=== PATIENT | female | born 1985 | race Two or more races ===

== ENCOUNTER 2017-04-28 12:00 | Emergency (ER) | payer OTHER ==
[2017-04-28 12:07] VITALS: RESP 16
[2017-04-28 13:31] LABS: COLOR AMBER; LEUKOCYTE ESTERASE,URINE NEGATIVE (NEGATIVE); NITRITE,URINE NEGATIVE (NEGATIVE)
--- NOTE | 2017-04-28 13:44 | EDPHY ---
H & P Smoking Status: Never smoked Time Seen by Provider: 04/28/17 13:30 HPI/ROS: CHIEF COMPLAINT: Right lower quadrant pain HISTORY OF PRESENT ILLNESS: This is a 31-year-old female presenting to the emergency department complaining right lower quadrant pain onset yesterday around 1600. Patient states it was initially sharp at 10/10, pain has decreased but is still constant radiating to right flank with nausea. No fever vomiting or diarrhea. Patient states she does have a history of kidney stones on her left side but today this pain is different. REVIEW OF SYSTEMS: Constitutional: No fever, no chills. Eyes: No discharge. ENT: No sore throat. Cardiovascular: No chest pain, no palpitations. Respiratory: No cough, no shortness of breath. Gastrointestinal: abdominal pain, no vomiting. Genitourinary: Urinary frequency, no dysuria Musculoskeletal: No back pain. Skin: No rashes. Neurological: No headache. (Kristi Barnhart) Physical Exam: General Appearance: Alert, no distress. Eyes: Pupils equal and round no pallor or injection. ENT, Mouth: Mucous membranes moist. Respiratory: There are no retractions, lungs are clear to auscultation. Cardiovascular: Regular rate and rhythm. Gastrointestinal: Abdomen is soft, right lower quadrant tenderness on palpation no rebound tenderness. no masses, bowel sounds normal. Neurological: No focal deficits Skin: Warm and dry, no rashes. Musculoskeletal: Neck is supple nontender. No CVA tenderness on palpation Extremities: symmetrical, full range of motion. Psychiatric: Patient is oriented X 3, there is no agitation. (Kristi Barnhart) Constitutional: Initial Vital Signs Temperature (C) 36.5 C 04/28/17 12:01 Heart Rate 72 04/28/17 12:01 Respiratory Rate 16 04/28/17 12:01 Blood Pressure 115/72 04/28/17 12:01 O2 Sat (%) 99 04/28/17 12:01 O2 Delivery Mode Room Air Allergies/Adverse Reactions: No Known Allergies Allergy (Verified 08/06/16 14:54) Home Medications: Medication Instructions Recorded Albuterol 12/16/15 Effexor 12/16/15 Albuterol [Ventolin Hfa Inhaler] 2 puffs IH QID PRN #1 mdi 08/06/16 Hydrocodone/APAP 5/325 [[place] 1 - 2 each PO Q6 PRN #20 tab 08/06/16 5/325] Medical Decision Making ED Course/Re-evaluation: Discussed ED plan of care: CBC BC, BMP, UA, hCG, pelvic and abdominal ultrasound to rule out appendicitis and ovarian cyst 1525: Spoke with Dr. Wilson pelvic ultrasound negative for any ovarian cyst, but recommends the CT with IV contrast unable to visualize the appendix due to patient's weight 1640: Spoke with Dr. Parikh CT negative for acute appendicitis, many renal calculi seen bilaterally non-obstructing 1645; discussed all results with patient, recommend following up with Nephrology and her primary care doctor. Patient reports 0/10 pain, no nausea vomiting. Discharge home---> stable, discussed all discharge instructions ( Kristi Barnhart) I did not see this patient while she was in the emergency department. However her care was discussed with the nurse practitioner while the patient was in the department. I agree with treatment plan and management (Dominguez Franz) Differential Diagnosis: Other differential diagnosis considered but not limited to appendicitis, ovarian cyst and ovarian torsion (Kristi Barnhart) - Data Points Laboratory Results: Laboratory Results 04/28/17 15:00 04/28/17 15:00 Medications Given: Discontinued Medications Morphine Sulfate (Morphine) 1 mg IVP EDNOW ONE Stop: 04/28/17 15:47 Last Admin: 04/28/17 16:10 Dose: 1 mg Ondansetron HCl (Zofran) 4 mg IVP EDNOW ONE Stop: 04/28/17 15:48 Last Admin: 04/28/17 16:10 Dose: 4 mg Oxycodone/Acetaminophen (Percocet 5/325mg Prepack#4) 1 btl TAKEHOME EDNOW ONE Stop: 04/28/17 16:50 Last Admin: 04/28/17 16:58 Dose: 1 btl Departure - Departure Disposition: Home, Routine, Self-Care Clinical Impression: Renal calculi Condition: Good Instructions: Kidney Stones (ED), Renal Colic (ED) Additional Instructions: Discussed discharge instructions 1. you can take ibuprofen and Tylenol as needed 2. Follow up with your primary care provider, follow up with Nephrology 3. If any symptoms worsen, such as: Fever, nausea vomiting high fever unable to tolerate any p.o. intake return to the ER Referrals: [facility] [Other] - As per Instructions Francisco Whiting MD [Medical Doctor] - As per Instructions
[2017-04-28 15:14] LABS: % IMMATURE GRANULYOCYTES 0.3 % (0.0-1.1); ABSOLUTE IMMATURE GRANULOCYTES 0.02 10^3/uL (0.00-0.10); ADD DIFF? NO; ADD MORPH? NO; ADD SCAN? NO; ATYPICAL LYMPHOCYTE FLAG 20 (0-99); FRAGMENT RBC FLAG 0 (0-99); HEMATOCRIT 40.1 % (38.0-47.0); HEMOGLOBIN 13.3 g/dL (12.6-16.3); LEFT SHIFT FLG 0 (0-99); LIPEMIA HEMOLYSIS FLAG 80 (0-99); MEAN CELL HEMOGLOBIN 29.2 pg (27.9-34.1); MEAN CELL HEMOGLOBIN CONCENTR. 33.2 g/dL (32.4-36.7); MEAN CELL VOLUME 88.1 fL (81.5-99.8); MEAN PLATELET VOLUME 10.1 fL (8.7-11.7); PLATELET CLUMPS FLAG 0 (0-99); PLATELET COUNT 302 10^3/uL (150-400); RED BLOOD CELL COUNT 4.55 10^6/uL (4.18-5.33); RED CELL DISTRIBUTION WIDTH 14.7 % (11.5-15.2)
[2017-04-28 15:41] LABS: ANION GAP 7 mEq/L (8-16); CALCIUM 9.8 mg/dL (8.5-10.4); CARBON DIOXIDE 22 mEq/l (22-31); CHLORIDE 107 mEq/L (97-110); CREATININE 0.7 mg/dL (0.6-1.0); GLOMERULAR FILTRATION RATE > 60; GLUCOSE 84 mg/dL (70-100); POTASSIUM 4.3 mEq/L (3.5-5.2); SODIUM 136 mEq/L (134-144)
[2017-04-28] MEDS ORDERED: ONDANSETRON 4 MG/2 ML VIAL IVP ONE (15:47)
[2017-04-28] MEDS ORDERED: IOPAMIDOL (ISOVUE-300) 100 ML BTL ONE (15:49)
[2017-04-28 16:23] VITALS: BP 110/69
[2017-04-28 16:44] VITALS: PULSE 64; TEMP 98.6; O2SAT 98
[2017-04-28] MEDS ORDERED: OXYCODONE/APAP 5/325MG PREPACK#4 BTL TAKEHOME ONE (16:49)
== END 2017-04-28 16:59 | disposition home or self-care (01) ==
DX: N20.0 Calculus of kidney (principal)
CPT/HCPCS: 96374; J2405; Q9967

== ENCOUNTER 2017-10-22 18:43 | Observation (INO) | payer OTHER ==
--- NOTE | 2017-10-22 19:55 | EDPHY ---
H & P Stated Complaint: Bloody discharge and increased abdo cramping, 17 weeks HPI/ROS: CHIEF COMPLAINT: Abdominal cramping and spotting, 17 weeks HISTORY OF PRESENT ILLNESS: The patient is a 32 y/o female who is 17 weeks by dates complaining of spotting and abdominal cramping. Her last ultrasound was 5 weeks ago and she saw her [facility] [facility] ANALYST last month, at which time heart tones were dopplerable. For several days she had mild cramping and spotting. However, yesterday she developed a sharp intermittent abdominal pain. She also noticed an increase in spotting today. It is uncomfortable to urinate, but there is no pain while urinating. She has not taken anything for pain. Denies history of therapeutic or miscarriage. REVIEW OF SYSTEMS: A ten point review of systems was performed and is negative with the exception of the items mentioned in the HPI. Past medical history: Asthma Kidney stones Past surgical history: Cholecystectomy Family history: Noncontributory Social history: [place] in [place] General Appearance: Alert. Vital signs reviewed. Eyes: Pupils equal and round, no conjunctival injection, no discharge. Anicteric. ENT, Mouth: Mucous membranes are moist, no oropharyngeal erythema or edema. Neck: No lymphadenopathy, supple. Respiratory: Lungs are clear to auscultation; no wheezes, rales, or rhonchi. Cardiovascular: Regular rate and rhythm; no murmur, rub, or gallop. Gastrointestinal: Mild left-sided abdominal tenderness. Abdomen is soft, no masses or organomegaly, bowel sounds normal. Skin: Warm and dry, no rashes on exposed skin, normal color. Back: Nontender to palpation over the thoracolumbar spine. No CVAT. Extremities: No lower extremity edema, no calf tenderness or swelling. Neurological: Alert and oriented. Moving all four extremities easily and equally. Psychiatric: Normal affect. - Personal History LMP (Females 10-55): Current Tetanus Diphtheria and Acellular Pertussis (TDAP): Yes - Medical/Surgical History Hx Asthma: Yes Hx Chronic Respiratory Disease: No Hx Diabetes: No Hx Cardiac Disease: No Hx Renal Disease: No Hx Cirrhosis: No Hx Alcoholism: No Hx HIV/AIDS: No Hx Splenectomy or Spleen Trauma: No Other PMH: PMH: asthma, kidney stones. PSH:choely - Social History Smoking Status: Never smoked Constitutional: Initial Vital Signs Temperature (C) 36.9 C 10/22/17 18:44 Heart Rate 89 10/22/17 18:44 Respiratory Rate 16 10/22/17 18:44 Blood Pressure 120/67 10/22/17 18:44 O2 Sat (%) 97 10/22/17 18:44 O2 Delivery Mode Room Air Allergies/Adverse Reactions: No Known Allergies Allergy (Verified 08/06/16 14:54) Home Medications: Medication Instructions Recorded Albuterol 12/16/15 Effexor 12/16/15 Albuterol [Ventolin Hfa Inhaler] 2 puffs IH QID PRN #1 mdi 08/06/16 Hydrocodone/APAP 5/325 [[place] 1 - 2 each PO Q6 PRN #20 tab 08/06/16 5/325] Ibuprofen [Motrin (*)] 600 mg PO Q6HRS PRN #30 tab 10/23/17 Medical Decision Making - Diagnostics Imaging: Discussed imaging studies w/ manager call center Radiologist ED Course/Re-evaluation: The patient is a 17 week , , 32 y/o female presenting with spotting and abdominal cramps for several days. On exam she has mild left-sided abdominal tenderness. Ob ultrasound reported to me by Dr. Hannah. He reports demise with placental abruption, 12 weeks 4 days by measurements on tonight's ultrasound. 2227: Reassessed patient and discussed ultrasound results. Rh positive. Dr. Mcclure will see her in the ED. Pelvic exam deferred to Dr. Mcclure. After discussion with Dr. Mcclure the patient would like to remain in the hospital overnight and undergo D&C in the morning. She is being admitted to the labor and delivery floor. She is stable while in the emergency department. Differential Diagnosis: I considered a ddx that includes but is not limited to demise/mass , placenta previa, threatened , normal pain of , UTI/ pyelo. - Data Points Microbiology Results: MICROBIOLOGY 10/22/17 20:15 Urine,Clean Catch Urine Culture - Preliminary Medications Given: Discontinued Medications Acetaminophen (Tylenol) 650 mg PO Q6 PRN PRN Reason: Pain, Mild/Fever, Can Take PO Stop: 04/21/18 00:44 Last Admin: 10/23/17 01:14 Dose: 650 mg Doxycycline Hyclate 100 mg/ (Sodium Chloride) 260 mls @ 260 mls/hr IV Q12HRS PERI PRN Reason: Protocol Stop: 11/22/17 06:59 Last Admin: 10/23/17 07:25 Dose: 260 mls Departure - Departure Disposition: [facility] In[facility] Acute Clinical Impression: demise, Missed with demise before 20 completed weeks of gestation Condition: Good Report Scribed for: Dinora Collier Report Scribed by: Tressa Pires Date of Report: 10/22/17 Time of Report: 21:09 Physician Review and Approval Statement: 10/22/17 19:55 Portions of this note were transcribed by the medical research tech. I, Dr. Dinora Collier, personally performed the history, physical exam, and medical decision- making; and confirmed the accuracy of the information in the transcribed note.
[2017-10-22 20:00] LABS: COLOR YELLOW; LEUKOCYTE ESTERASE,URINE NEGATIVE (NEGATIVE); NITRITE,URINE NEGATIVE (NEGATIVE)
[2017-10-22 20:13] LABS: BACTERIA TRACE /hpf (NONE SEEN); MUCUS TRACE /lpf (NONE-1+)
[2017-10-22 23:59] VITALS: PULSE 79
[2017-10-23 00:20] VITALS: BP 109/70; RESP 18; TEMP 98.2; O2SAT 98
[2017-10-23] MEDS ORDERED: ACETAMINOPHEN 325 MG TAB PO PRN (00:45)
--- NOTE | 2017-10-23 02:07 | GHP ---
[f rep st] PREOP HISTORY AND PHYSICAL DATE OF ADMISSION: 10/22/2017 REASON FOR CONSULTATION: Twelve week demise with abdominal pain. INDICATIONS: Patient is a 32-year-old, 5, para 4-0-0-4, who has been receiving care at [facility] in [place]. Patient was supposed to be around approximately 17 weeks gestatio n. She was last seen 4 weeks ago at [facility] and had normal heart tones Dopplered at that time. For the last several days, patient has been having some increased cramping and began having spotting leeroy ier today. She called her doctor's office who told her to go to the nearest hospital, so she came to [facility]. An ultrasound was performed, which showed a 12 week 4 day fetus with no cardiac activity and a suspected placental abruption, diagnosis of missed AB, demise was made. Patient is tearful but not surprised. A long discussion was had with the patient about management options, because patient is having minimal bleeding and minimal pain, that patient be allowed to go h ome tonight to process and then follow up with her provider tomorrow and schedule a d and C versus ex pected management and possibly passing the baby and placental tissue at home and following up versus being observed overnight and doing a D and C in the morning. Patient is electing to proceed with a D and C in the morning after inpatient observation to avoid having to go home and discuss this with he r children before had the situation resolved. Patient is comfortable, will be managed overnight, and will do the D and C in the morning. PAST MEDICAL HISTORY: Significant for asthma, sleep apnea, and seasonal allergies. MEDICATIONS: Advair, Xopenex. PAST SURGICAL HISTORY: Kidney stone removal several times, cholecystectomy. ALLERGIES: No known drug allergies. SOCIAL HISTORY: Patient denies tobacco, alcohol, or drug use. FAMILY MEDICAL HISTORY: Noncontributory. HVAC LEAD HISTORY: Patient has a history of irregular cycles. She is a 5, para 4-0-0-4. Her c hildren are 16, 12, 10, and 5. She has had all vaginal deliveries, most recent is a missed . Patient has a remote history of abnormal Pap smears but just was followed with repeat Pap smears. Denies any history of any sexually transmitted diseases. PHYSICAL EXAMINATION: VITAL SIGNS: Stable. Her blood pressure is 120/67. Her heart rate is 89. H er temperature is 36.8. GENERAL APPEARANCE: Alert, oriented x3, and tearful. PSYCH: She has appro priate affect. MUSCULOSKELETAL: Grossly intact. NEUROMUSCULAR: Grossly intact. HEART: Rate is r egular. LUNGS: Clear to auscultation bilaterally. ABDOMEN: Obese, soft, nondistended, nontender. EXTREMITIES: Reveal no calf tenderness or edema. PELVIC: Deferred for the moment. Pelvic ultrasound showed a 12 week 4 day demise with no cardiac activity with a posterior place nta abruption. Patient's blood type is Rh positive. REVIEW OF SYSTEMS: A 10-point review of systems is negative with the exception of the above and ment ioned pertinent positive. ASSESSMENT AND PLAN: A 32-year-old, 5, para 4-0-0-4, who is 17 weeks by dates with a 12 week 4 day demise. Because patient is hemodynamically and physically stable and it is not an emerg ency, will wait to do the suction dilation and curettage in the morning under ultrasound to allow for an program services assistant to help with ultrasound guidance due to the advanced gestational age. Patient will sig n consent in the morning. She will be managed overnight. /[id number]/MODL
[2017-10-23] MEDS ORDERED: DOXYCYCLINE INJ 100 MG in NS 250 ML IV SCH (07:00)
[2017-10-23] MEDS ORDERED: MIDAZOLAM 2 MG/2 ML VIAL ONE (08:01)
[2017-10-23] MEDS ORDERED: PROPOFOL/EMULSION 500 MG/50 ML BOTTLE IV ONE (08:06)
[2017-10-23] MEDS ORDERED: fentaNYL 100 MCG/2 ML INJ ONE ×2 (08:07→09:08)
[2017-10-23] MEDS ORDERED: METHYLERGONOVINE MAL 0.2 MG/ML INJ ONE (08:31)
--- NOTE | 2017-10-23 08:59 | POSTOPPROG ---
Post Op Note Date of Operation: 10/23/17 Surgeon: Marti Lujan Rivet Heater: Dr. Lily Mcclure Anesthesiologist: Dr. John Flores Anesthesia: GET(General Endotracheal) Pre-op Diagnosis: MAB @ 17 weeks by dates, 03/02 by size Post-op Diagnosis: same Procedure: ultrasound guided suction D and C Findings: 12 week demise Inf/Abcess present in the surg proc area at time of surgery?: No Depth: Organ Space EBL: 50-100 Total fluids administered: 500 Complications: none Specimen(s): products of conception
[2017-10-23] MEDS ORDERED: IBUPROFEN 600 MG TAB PO PRN (09:00)
[2017-10-23] MEDS ORDERED: DEXAMETHASONE 4 MG/ML VIAL ONE ×2 (09:07→09:08)
[2017-10-23] MEDS ORDERED: LIDOCAINE 2% 5 ML SDV ONE (09:07)
[2017-10-23] MEDS ORDERED: ONDANSETRON 4 MG/2 ML VIAL ONE (09:07)
[2017-10-23] MEDS ORDERED: KETOROLAC 30 MG/1 ML SDV ONE (09:08)
[2017-10-23] MEDS ORDERED: METOCLOPRAMIDE 10 MG/2 ML VIAL ONE (09:17)
--- NOTE | 2017-10-23 10:27 | PDANEPAE ---
ANE History of Present Illness Missed Ab. ANE Past Medical History - Cardiovascular History Hx Hypertension: No Hx Arrhythmias: No Hx Chest Pain: No Hx Coronary Artery / Peripheral Vascular Disease: No Hx CHF / Valvular Disease: No Hx Palpitations: No - Pulmonary History Hx COPD: No Hx Asthma/Reactive Airway Disease: Yes Hx Recent Upper Respiratory Infection: No Hx Oxygen in Use at Home: No Hx Sleep Apnea: Yes - Endocrine History Hx Diabetes: No Hypothyroid: No Hyperthyroid: No Obesity: moderate - Chronic Pain History Chronic Pain: No - Surgical History Prior Surgeries: Prior cholecystectomy. ANE Review of Systems Review of systems is: negative Review of Systems: - Exercise capacity Exercise capacity: >=4 METS ANE Patient History - Allergies Allergies/Adverse Reactions: No Known Allergies Allergy (Verified 08/06/16 14:54) - Home Medications Home Medications: Albuterol 12/16/15 [Last Taken Unknown] Effexor 12/16/15 [Last Taken Unknown] - Anes Hx Anes Hx: no prior problems - Smoking Hx Smoking Status: Never smoked Marijuana use: No - Alcohol Use Alcohol Use: Rarely - Family Anes Hx Family Anes Hx: neg - N/A ANE Labs/Vital Signs - Vital Signs Blood Pressure: 109/70 Heart Rate: 79 Respiratory Rate: 18 O2 Sat (%): 98 Height: 154.94 cm Weight: 92.986 kg ANE Physical Exam - Airway Neck exam: FROM Mallampati Score: Class 3 Mouth exam: normal dental/mouth exam - Pulmonary Pulmonary: no respiratory distress, clear to auscultation - Cardiovascular Cardiovascular: regular rate and rhythym - ASA Status ASA Status: II ANE Anesthesia Plan Anesthesia Plan: GA with mask
--- NOTE | 2017-10-23 10:40 | POSTANESTH ---
Post Anesthetic Evaluation Cardiovascular Status: Normal, Stable, Similar to Pre-Op Cond Respiratory Status: Normal, Stable, Similar to Pre-op Cond. Level of Consciousness/Mental Status: Can Participate in Eval, Mildly Sleepy, Arousable Pain Control: Inadeq, Add Tx Required Nausea/Vomiting Control: Inadeq, Add Tx Reqired Complications Possibly Related to Anesthesia: None Noted (Comfortable after fentanyl for pain and reglan for nausea. Patient and instructed that patient should be careful to continue to use CPAP machine whenever sleeping.)
[2017-10-23] MEDS ORDERED: ALBUTEROL 3 ML DEYVIAL IH PRN (10:41)
[2017-10-23] MEDS ORDERED: fentaNYL 100 MCG/2 ML INJ IVP PRN (10:41)
[2017-10-23] MEDS ORDERED: METOCLOPRAMIDE 10 MG/2 ML VIAL IVP PRN (10:41)
[2017-10-23] MEDS ORDERED: NALOXONE HCL 0.4 MG/ML INJ IVP PRN (10:41)
--- NOTE | 2017-10-23 16:19 | GOP ---
[f rep st] OPERATIVE REPORT DATE OF OPERATION: 10/23/2017 SURGEON: Marti Lujan MD SLAB CONDITIONER SUPERVISOR: Lily Mcclure DO. ANESTHESIA: General. ANESTHESIOLOGIST: John Flores MD PREOPERATIVE DIAGNOSIS: Missed at 17 weeks by dates 12-03/02 weeks by size. POSTOPERATIVE DIAGNOSIS: PROCEDURE PERFORMED: Ultrasound-guided suction dilation and curettage. FINDINGS: ESTIMATED BLOOD LOSS: (For the procedure) Approximately 100 cc. INDICATIONS: The patient is a 32-year-old 5 para 4-0-0-4, who has been receiving care at [facility] in [place]. She was at approximately 17 weeks' gestation by assure and regular last menstrual period and an early ultrasound. She had been seen 4 weeks prior and had normal heart tones at that time. Several days she had some increased cramping, began having spotting earlier on the . She called her doctor's office who told her to go to the nearest hospital. She presented to [facility], and an ultrasound was performed, which demonstrated a 12-week 4-day fe tus with no cardiac activity and a suspected placental abruption. The patient was diagnosed wi th a missed . She was given treatment options, including expectant management versus medical management versus surgical management with a suction dilation curettage. The patient was given the option to discharge home and follow up with her provider for a suction dilation curettage; she declin ed this. She elected to stay overnight and have a suction dilation curettage performed the morning of the . Patient was consented for the procedure. She understood the risks and benefits; the risk s including bleeding, infection, damage to internal organs, including possible risk of uterine perfor ation and risk of damage to other organs if perforation were to occur, risk of incomplete removal of all the tissue, need for spontaneous expulsion, or a repeat procedure at a later time, and also compr omise of future fertility. She understood these risks and benefits and agreed to proceed. DESCRIPTION OF PROCEDURE: Patient was taken to the operating room where she was placed under general anesthesia without difficulty. She was prepped and draped in the dorsal lithotomy position and she had previously just drained her bladder. A weighted speculum was placed in the vagina, and a Graham re tractor was used to visualize the cervix. The anterior lip of the cervix was grasped with a single-t ooth tenaculum. The cervix was progressively dilated with Malave and Hegar dilators to a #14 number. A #14 curved suction curette was then gently advanced from the cervix to the fundus, and under ultra sound guidance, suction was applied, and as well as placental tissue was removed with several p assages of the suction device. With the ultrasound, it was obvious that the head was still pre sent. I reached a sponge stick in and removed that directly. After that, there was very little tiss ue still present in the uterus. Sharp curettage was performed in a clockwise fashion until a gritty texture was palpated throughout the entire endometrium. Final passage of the suction device revealed no further tissue and minimal bleeding. The tenaculum and the speculum were removed, and a transvag inal ultrasound was performed to document a thin bright endometrial stripe. No further tissue was vi sualized. The speculum was replaced. There was a small area of bleeding on the anterior lip of the cervix from the tenaculum. This was cauterized with silver nitrate. The patient tolerated the proce dure well. Sponge, lap, needle, and instrument counts were correct x2. The patient went to the [facility] very room in good condition. IV FLUIDS: 500 cc. URINE OUTPUT: Not measured. PATHOLOGIC SPECIMEN: Products of conception. /[id number]/MODL
== END 2017-10-23 10:45 | disposition home or self-care (01) ==
LOC: FOB 10-23 00:18 → FLD 10-23 10:11
PROVIDERS: ADMIT Obstetrics & Gynecology; ATTEND Obstetrics & Gynecology
PROC: 10D17ZZ Extraction of Products of Conception, Retained, Via Natural or Artificial Opening (ICD-10-PCS; principal; 2017-10-23)
DX: O02.1 Missed abortion (principal); J45.909 Unspecified asthma, uncomplicated; G47.33 Obstructive sleep apnea (adult) (pediatric); Z87.442 Personal history of urinary calculi
CPT/HCPCS: 59820; 76815; G0378; J1100; J1885; J2210; J2250; J2405; J2704; J2765; J3010

== ENCOUNTER 2018-03-09 21:30 | Emergency (ER) | payer OTHER ==
[2018-03-09 21:36] VITALS: BP 113/70
--- NOTE | 2018-03-09 22:01 | EDPHY ---
H & P Time Seen by Provider: 03/09/18 21:50 HPI/ROS: CHIEF COMPLAINT: Painful lesion left axilla HISTORY OF PRESENT ILLNESS: 32-year-old female currently 7 weeks complaining with tender lesion to her left axilla for the past 3 days. Prior history of similar in similar location. No history of MRSA. No nausea or vomiting. No fever or chills. PHYSICAL EXAM (Prior to examination, patient consented to physical exam, hands were washed and my usual and customary physical exam procedures followed) 1) GENERAL: Well-developed, well-nourished, alert and oriented. Appears to be in no acute distress. 2) HEAD: Normocephalic 3) HEENT: sclera anicteric 4) LUNGS: Breathing comfortably. 5) SKIN: Left axilla indurated fluctuant erythematous 2 x 4 lesion consistent with abscess. No crepitus. Smoking Status: Never smoked Constitutional: Initial Vital Signs Temperature (C) 37.0 C 03/09/18 21:33 Heart Rate 76 03/09/18 21:33 Respiratory Rate 18 03/09/18 21:33 Blood Pressure 113/70 03/09/18 21:33 O2 Sat (%) 98 03/09/18 21:33 O2 Delivery Mode Room Air Allergies/Adverse Reactions: No Known Allergies Allergy (Verified 03/09/18 21:32) Home Medications: Medication Instructions Recorded Albuterol 12/16/15 Effexor 12/16/15 Albuterol [Ventolin Hfa Inhaler] 2 puffs IH QID PRN #1 mdi 08/06/16 Cephalexin [Keflex] 500 mg PO TID 7 Days cap 03/09/18 03/09/18 MDM/Departure - MDM Procedures: Procedure: Abscess drainage. The patient's abscess was located on the left axilla . I obtained verbal consent from the patient to drain the abscess who was informed about the possibility of bleeding and pain. The abscess was incised with a scalpel and a moderate amount of purulent drainage was expressed. I irrigated the wound. The patient tolerated the procedure well. The procedure was performed by myself. ED Course/Re-evaluation: Care of patient under supervision of secondary supervising physician Dr Meneses . - Depart Disposition: Home, Routine, Self-Care Clinical Impression: Abscess of left axilla Condition: Good Instructions: Abscess (ED) Additional Instructions: Return to the ER if you develop redness, swelling, discharge, warmth to the wound,, or any other symptoms that concern you. Prescriptions: Cephalexin [Keflex] 500 mg PO TID 7 Days cap Referrals: GABE NASH [Other] - 1-2 days without fail
== END 2018-03-09 22:09 | disposition home or self-care (01) ==
PROC: 0H9CXZZ Drainage of Left Upper Arm Skin, External Approach (ICD-10-PCS; principal; 2018-03-09)
DX: O99.711 Diseases of the skin and subcutaneous tissue complicating pregnancy, first trimester (principal); L02.412 Cutaneous abscess of left axilla; Z3A.01 Less than 8 weeks gestation of pregnancy

== ENCOUNTER 2018-04-06 13:56 | Emergency (ER) | payer OTHER ==
--- NOTE | 2018-04-06 14:15 | EDPHY ---
H & P Stated Complaint: N/Vx 3 days; pt is 11 wks ; has OB appt on Sunday Source: Patient Exam Limitations: No limitations - Personal History LMP (Females 10-55): EDC: 10/26/18 Current Tetanus Diphtheria and Acellular Pertussis (TDAP): Yes - Medical/Surgical History Hx Asthma: Yes Hx Chronic Respiratory Disease: No Hx Diabetes: No Hx Cardiac Disease: No Hx Renal Disease: No Hx Cirrhosis: No Hx Alcoholism: No Hx HIV/AIDS: No Hx Splenectomy or Spleen Trauma: No Other PMH: PMH: asthma, kidney stones. PSH:choley. AB1 - Social History Smoking Status: Never smoked Time Seen by Provider: 04/06/18 14:14 HPI/ROS: HPI: This is a 32-year-old female who presents with Chief Complaint: N/Vx 3 days; pt is 11 wks ; has OB appt on Sunday Location:GI Quality: Nausea, vomiting Duration: 3 days Signs and Symptoms: no fever, + nausea, + vomiting, no hematemesis, no blood in stool, no abdominal bloating, no diarrhea, no back pain, no urinary symptoms, no vaginal bleeding/discharge, no indigestion, no chest pain, no shortness of breath Timing: Acute, intermittent episodes, worse in the morning Severity: Moderate Context: AB1; miscarriage at 4 months x1 presents with complaints of chronic nausea since her last menstrual period on January 19. She reports that 1 month later she went to her primary care provider at [facility] and tested positive for . She reports that she has had daily chronic nausea since finding out that she was . Her other pregnancies she had morning sickness as well. She reports that she feels more nauseous in the morning. Up to this point she had been controlling the nausea with eating small bland meals frequently. She reports she can only tolerate drinking water. She reports that the last 3 days though her nausea has increased to the point where she vomited once or twice per day. Denies any fever/diarrhea/ urinary symptoms. No family members are sick. She has no abdominal pain or cramping. No vaginal bleeding. She has an appointment on Sunday with her OBGYN. She had an ultrasound performed 2 weeks ago that was normal per patient. She reports that her blood type is O-positive. Modifying Factors: Eating small frequent meals Comment: ROS: see HPI Constitutional: No fever, no chills, no weight loss Eyes: No blurred vision Respiratory: No shortness of breath, no cough Cardiovascular: No chest pain, no palpitations Gastrointestinal: +nausea, + vomiting, no diarrhea, no hematemesis, no blood in stool Genitourinary: No dysuria, no blood in urine Extremities: No myalgias, no edema Neurologic: No weakness, no numbness Skin: No rashes, no petechiae Hematologic: No bruising, no bleeding MEDICAL/SURGICAL/SOCIAL HISTORY: PMH: asthma, kidney stones PSH: Cholecystectomy Social history: Family history noncontributory. CONSTITUTIONAL: Extremely well-appearing pleasant adult female, awake and alert, no obvious distress HEENT: Atraumatic and normocephalic, PERRL, EOMI. Nares patent; no rhinorrhea; no nasal mucosal edema. Tympanic membranes clear. Oropharynx clear, no exudate and moist pink mucosa. Airway patent. No lymphadenopathy. No meningismus. Cardiovascular: Normal S1/S2, regular rate, regular rhythm, without murmur rub or gallop. PULMONARY/CHEST: Symmetrical and nontender. Clear to auscultation bilaterally. Good air movement. No accessory muscle usage. ABDOMEN: Soft, gravid, nontender, no rebound, no guarding, no peritoneal signs , no masses or organomegaly. No CVAT. PELVIC: Declined by patient EXTREMITIES: 2/2 pulses, strength 5/5, no deformities, no clubbing, no cyanosis or edema. NEUROLOGICAL: no focal neuro deficits. GCS 15. SKIN: Warm and dry, no erythema. no rash. Good capillary refill. ([place]) Constitutional: Initial Vital Signs Temperature (C) 37.1 C 04/06/18 13:58 Heart Rate 82 04/06/18 13:58 Respiratory Rate 18 04/06/18 13:58 Blood Pressure 105/58 L 04/06/18 13:58 O2 Sat (%) 98 04/06/18 13:58 O2 Delivery Mode Room Air Allergies/Adverse Reactions: No Known Allergies Allergy (Verified 04/06/18 13:58) Home Medications: Medication Instructions Recorded Albuterol [Ventolin Hfa Inhaler] 2 puffs IH QID PRN #1 mdi 08/06/16 03/09/18 Ondansetron Odt [Zofran Odt 4 mg 4 mg PO Q4 PRN #12 tab 04/06/18 (*)] Medical Decision Making ED Course/Re-evaluation: Vital signs stable upon arrival. No hypertension. Pelvic exam declined by patient. Labs, urinalysis, IV fluids, IV medications ordered Patient given 1 L normal saline and IV Zofran after speaking about the small potential for adverse effects Ultrasound ordered due to request even though there is no abdominal pain or vaginal bleeding and had a normal 1-2 weeks prior. 1530: Called by radiologist who advised that ultrasound shows no acute process. Eleven weeks 6 days gestation. Urinalysis did not show ketones or signs of infection. Labs reviewed. No signs of leukocytosis/anemia/BAYLEE/electrolyte imbalance. 1537: Reassessed patient who reports that she feels considerably improved. Passed p.o. Trial prior to discharge. Given prescription of Zofran per request. This patient was seen under the supervision of my secondary supervising physician. I evaluated care for this patient independently. Discussed this patient with Dr. Thomas who did not see the patient. (Nina Price) Differential Diagnosis: Differential diagnosis includes but is not limited to hyperemesis , gastroenteritis. (Nina Price) Other Provider: The patient was evaluated and managed by the Physician Ground Instructor [employer]. I discussed the patient's presentation and course with the midlevel provider with them and agree with the evaluation. My co-signature indicates that I have reviewed this chart and I agree with the findings and plan of care as documented. I am the secondary supervising physician. (Rose Thomas) - Data Points Laboratory Results: Laboratory Results 04/06/18 14:35 04/06/18 14:35 Medications Given: Discontinued Medications Sodium Chloride (Ns) 1,000 mls @ 0 mls/hr IV EDNOW ONE; Wide Open PRN Reason: Protocol Stop: 04/06/18 14:19 Last Admin: 04/06/18 15:39 Dose: Not Given Sodium Chloride (Ns) 1,000 mls @ 0 mls/hr IV EDNOW ONE; Wide Open PRN Reason: Protocol Stop: 04/06/18 14:19 Last Admin: 04/06/18 14:32 Dose: 1,000 mls Ondansetron HCl (Zofran) 4 mg IVP EDNOW ONE Stop: 04/06/18 14:19 Last Admin: 04/06/18 14:34 Dose: 4 mg Departure - Departure Disposition: Home, Routine, Self-Care Clinical Impression: First trimester , Nausea and vomiting during prior to 22 weeks gestation Condition: Good Instructions: Ondansetron (By mouth), Hyperemesis Gravidarum (ED) Additional Instructions: Consume a minimum of 8-10 glasses of water or electrolyte fluid replacement drinks that include Gatorade, Powerade, Pedialyte. Eat a bland diet for the next 48 hours and then slowly advance as tolerated. Take Zofran 1 tab every 4 hours as needed for nausea, vomiting. Keep follow-up appointment on Sunday with your primary care provider. Referrals: [facility] [Other] - As per Instructions Prescriptions: Ondansetron Odt [Zofran Odt 4 mg (*)] 4 mg PO Q4 PRN #12 tab PRN Reason: Nausea/Vomiting, Use 1st
[2018-04-06] MEDS ORDERED: NS 1,000 ML IV ONE ×2 (14:18)
[2018-04-06] MEDS ORDERED: ONDANSETRON 4 MG/2 ML VIAL IVP ONE (14:18)
[2018-04-06 14:48] LABS: PLATELET COUNT 277 10^3/uL (150-400)
[2018-04-06 15:51] VITALS: BP 100/65
== END 2018-04-06 15:56 | disposition home or self-care (01) ==
DX: O21.9 Vomiting of pregnancy, unspecified (principal); E86.9 Volume depletion, unspecified; J45.909 Unspecified asthma, uncomplicated; Z3A.12 12 weeks gestation of pregnancy
CPT/HCPCS: 96374; J2405

== ENCOUNTER 2018-04-10 11:43 | Emergency (ER) | payer OTHER ==
[2018-04-10] MEDS ORDERED: NS 1,000 ML IV ONE (12:52)
--- NOTE | 2018-04-10 12:52 | EDPHY ---
H & P Stated Complaint: 12 weeks /initial spotting/now with some clots Time Seen by Provider: 04/10/18 12:52 - Personal History LMP (Females 10-55): - Medical/Surgical History Hx Asthma: Yes Hx Chronic Respiratory Disease: No Hx Diabetes: No Hx Cardiac Disease: No Hx Renal Disease: No Hx Cirrhosis: No Hx Alcoholism: No Hx HIV/AIDS: No Hx Splenectomy or Spleen Trauma: No Other PMH: PMH: asthma, kidney stones. PSH:choley. AB1 - Social History Smoking Status: Never smoked Constitutional: Initial Vital Signs Temperature (C) 37.2 C 04/10/18 11:55 Heart Rate 73 04/10/18 11:55 Respiratory Rate 19 04/10/18 11:55 Blood Pressure 97/43 L 04/10/18 11:55 O2 Sat (%) 98 04/10/18 11:55 O2 Delivery Mode Room Air Allergies/Adverse Reactions: No Known Allergies Allergy (Verified 04/10/18 11:55) Home Medications: Medication Instructions Recorded Albuterol [Ventolin Hfa Inhaler] 2 puffs IH QID PRN #1 mdi 08/06/16 03/09/18 Ondansetron Odt [Zofran Odt 4 mg 4 mg PO Q4 PRN #12 tab 04/06/18 (*)] Medical Decision Making - Diagnostics Imaging Results: Imaging Impressions Obstetrics Ultrasound 04/10/18 12:53 Impression: 1. Single viable intrauterine gestation with EGA 11 weeks 4 days by LMP and ultrasound dating. 2. Estimated date of delivery is 10/26/2018. Size consistent with dates. 3. Small subchorionic hemorrhage seen along the fundus of the uterus adjacent to the gestational sac. This was not identified previously. Findings discussed with Dion Guzmán MD at 13:58 hour, 04/10/2018. Imaging: Discussed imaging studies w/ call person Radiologist ED Course/Re-evaluation: CHIEF COMPLAINT: Vaginal bleeding, 12 weeks HISTORY OF PRESENT ILLNESS: This patient is a 32 year old female who is 12 weeks . She has four children and had one miscarriage last September. The patient presents with mild vaginal bleeding and spotting requiring about two pads per day for the past few days. She endorses some mild cramping. She denies heavy bleeding or severe abdominal or pelvic pain. No fever, chest pain, shortness of breath, vomiting, or other associated symptoms. REVIEW OF SYSTEMS: A 10 point review of systems was performed and is negative with the exception of the elements mentioned in the history of present illness. PHYSICAL EXAM: HR, BP, O2 Sat, RR. Temp noted General Appearance: Alert, well hydrated, appropriate, and non-toxic appearing. Head: Atraumatic without scalp tenderness or obvious injury Eyes: Pupils equal, round, reactive to light and accommodation, EOMI, no trauma , no injection. Ears: Clear bilaterally, no perforation, normal landmarks Nose: Atraumatic, no rhinorrhea, clear. Throat: There is no erythema or exudates, no lesions, normal tonsils, mucus membranes moist. Neck: Supple, 2+ carotid upstroke, nontender, no lymphadenopathy. Respiratory: No retractions, no distress, no wheezes, and no accessory muscle use. Lungs are clear to auscultation bilaterally. Cardiovascular: Regular rate and rhythm, no murmurs, rubs, or gallops. Bilateral carotid, radial, dorsalis pedis, and posterior tibial pulses intact. Good capillary refill all extremities. Gastrointestinal: Abdomen is soft, nontender, non-distended, no masses, no rebound, no guarding, no peritoneal signs. Musculoskeletal: Normal active ROM of all extremities, atraumatic. Neurological: Alert, appropriate, and interactive. The patient has normal DTRs and non-focal cranial nerves, motor, sensory, and cerebellar exam. Skin: No rashes, good turgor, no nodules on palpation. Past medical history: A1. Asthma. Kidney stones. Past surgical history: Cholecystectomy. Family history: Noncontributory. Social history: . Lives in [place]. Employed. DIFFERENTIAL DIAGNOSIS: The differential diagnosis for the patient's vaginal bleeding included but was not limited to ectopic , menses, miscarriage, and dysfunctional uterine bleeding. MEDICAL DECISION MAKIN32 year old female who is 12 weeks presents with mild vaginal bleeding ongoing for the past few days. Plan for obstetrics US. Plan for labs including CBC, chemistries, BHCG, ABO/RH type. Plan to administer Rhogam if warranted. BHCG positive. Labs otherwise unremarkable. 14:[address] Huitron, radiologist. US shows normal IUP. Reassessed patient. Discussed imaging results. Plan to discharge home in good condition. Follow up and return precautions discussed. The patient is comfortable with this plan. - Data Points Laboratory Results: Laboratory Results 04/10/18 13:00 04/10/18 13:00 04/10/18 04/10/18 04/10/18 13:50 13:00 13:00 WBC RBC Hgb Hct MCV MCH MCHC RDW Plt Count MPV Neut % (Auto) Lymph % (Auto) Lynn % (Auto) Eos % (Auto) Baso % (Auto) Nucleat RBC Rel Count Absolute Neuts (auto) Absolute Lymphs (auto) Absolute Monos (auto) Absolute Eos (auto) Absolute Basos (auto) Absolute Nucleated RBC Immature Gran % Immature Gran # Sodium 140 mEq/L mEq/L (135-145) Potassium 4.2 mEq/L mEq/L (3.3-5.0) Chloride 108 mEq/L mEq/L (97-110) Carbon Dioxide 21 mEq/l L mEq/l (22-31) Anion Gap 11 mEq/L mEq/L (8-16) BUN 8 mg/dL mg/dL (7-23) Creatinine 0.5 mg/dL L mg/dL (0.6-1.0) Estimated GFR > 60 Glucose 82 mg/dL mg/dL (70-100) Calcium 10.1 mg/dL mg/dL (8.5-10.4) Beta HCG, Qual POSITIVE Beta HCG, Quant Pending Patient ABO/Rh Pending 04/10/18 13:00 WBC 7.95 10^3/uL 10^3/uL (3.80-9.50) RBC 4.78 10^6/uL 10^6/uL (4.18-5.33) Hgb 15.1 g/dL g/dL (12.6-16.3) Hct 43.2 % % (38.0-47.0) MCV 90.4 fL fL (81.5-99.8) MCH 31.6 pg pg (27.9-34.1) MCHC 35.0 g/dL g/dL (32.4-36.7) RDW 13.3 % % (11.5-15.2) Plt Count 297 10^3/uL 10^3/uL (150-400) MPV 9.6 fL fL (8.7-11.7) Neut % (Auto) 65.0 % % (39.3-74.2) Lymph % (Auto) 26.4 % % (15.0-45.0) Lynn % (Auto) 7.2 % % (4.5-13.0) Eos % (Auto) 0.6 % % (0.6-7.6) Baso % (Auto) 0.4 % % (0.3-1.7) Nucleat RBC Rel Count 0.0 % % (0.0-0.2) Absolute Neuts (auto) 5.17 10^3/uL 10^3/uL (1.70-6.50) Absolute Lymphs (auto) 2.10 10^3/uL 10^3/uL (1.00-3.00) Absolute Monos (auto) 0.57 10^3/uL 10^3/uL (0.30-0.80) Absolute Eos (auto) 0.05 10^3/uL 10^3/uL (0.03-0.40) Absolute Basos (auto) 0.03 10^3/uL 10^3/uL (0.02-0.10) Absolute Nucleated RBC 0.00 10^3/uL 10^3/uL (0-0.01) Immature Gran % 0.4 % % (0.0-1.1) Immature Gran # 0.03 10^3/uL 10^3/uL (0.00-0.10) Sodium Potassium Chloride Carbon Dioxide Anion Gap BUN Creatinine Estimated GFR Glucose Calcium Beta HCG, Qual Beta HCG, Quant Patient ABO/Rh Medications Given: Discontinued Medications Sodium Chloride (Ns) 1,000 mls @ 0 mls/hr IV ONCE ONE; Wide Open PRN Reason: Protocol Stop: 04/10/18 12:53 Last Admin: 04/10/18 13:05 Dose: 1,000 mls Departure - Departure Disposition: Home, Routine, Self-Care Clinical Impression: Threatened in first trimester Subchorionic hemorrhage in first trimester Qualifiers: Fetus number: single or unspecified fetus Qualified Code(s): O41.8X10 - Other specified disorders of amniotic fluid and membranes, first trimester, not applicable or unspecified Condition: Good Instructions: First Trimester Vaginal Bleed (ED), First Trimester (ED ) Additional Instructions: 1. Follow up with your NATIONAL ACCOUNTS RECRUITER for further evaluation. 2. Return to the emergency department for persistent or heavy bleeding, fever, abdominal or pelvic pain, or other worsening of condition or further concerns. Referrals: [facility] [Other] - As per Instructions Marti Lujan MD [Medical Doctor] - As per Instructions Report Scribed for: Dion Guzmán Report Scribed by: Dianne Muniz Date of Report: 04/10/18 Time of Report: 13:19
[2018-04-10 13:09] LABS: PLATELET COUNT 297 10^3/uL (150-400)
[2018-04-10 13:54] VITALS: BP 97/67
== END 2018-04-10 14:15 | disposition home or self-care (01) ==
DX: O20.0 Threatened abortion (principal); O36.8990 Maternal care for other specified fetal problems, unspecified trimester, not applicable or unspecified; J45.909 Unspecified asthma, uncomplicated; E86.9 Volume depletion, unspecified; Z3A.12 12 weeks gestation of pregnancy